=== PATIENT | female | born 1945 | race Two or more races ===

== ENCOUNTER 2018-03-31 07:22 | Outpatient (CLI) | payer OTHER ==
[~2018-03-31 07:22] MED LIST: ADULT ASPIRIN81 MG; ALDACTONE100 MG; ALDACTONE25 MG; CARVEDILOL25 MG; COZAAR25 MG; DIGOXIN0.125 MG/2; ECOTRIN81 MG; FUROSEMIDE40 MG
== END 2018-03-31 07:28 | disposition home or self-care (01) ==
LOC: SONOGRAMA 07:22
DX: K80.00 Calculus of gallbladder with acute cholecystitis without obstruction (principal)

== ENCOUNTER 2018-08-09 10:54 | Outpatient (CLI) | payer OTHER | END 2018-08-09 11:00 | disposition home or self-care (01) | LOC: NUCLEAR 10:54 | DX: J44.9 Chronic obstructive pulmonary disease, unspecified (principal) | CPT/HCPCS: 78472; 78496; A9560 ==

== ENCOUNTER 2020-12-26 07:30 | Outpatient (CLI) | payer OTHER | END 2020-12-26 07:39 | disposition home or self-care (01) | LOC: MRI 07:30 | PROVIDERS: ATTEND Orthopaedic Surgery | DX: S83.242A Other tear of medial meniscus, current injury, left knee, initial encounter (principal); Y99.8 Other external cause status | CPT/HCPCS: 73721 ==

== ENCOUNTER 2022-04-27 07:19 | Outpatient (CLI) | payer OTHER | END 2022-04-27 07:20 | disposition home or self-care (01) | LOC: NUCLEAR 07:19 | PROVIDERS: ATTEND Internal Medicine Cardiovascular Disease | DX: I25.9 Chronic ischemic heart disease, unspecified (principal) | CPT/HCPCS: 78452; 93017; A9500; J0153 ==